=== PATIENT | female | born 1980 | race Two or more races ===

== ENCOUNTER 2023-01-13 10:53 | Emergency (ER) | payer SELFPAY ==
[2023-01-13] MEDS ORDERED: HYDROmorphone 1 MG/ML Syringe IM ONE (11:39)
[2023-01-13] MEDS ORDERED: Cyclobenzaprine 10 MG Tab PO ONE (11:39)
== END 2023-01-13 12:08 | disposition home or self-care (01) ==
LOC: JP.ED 10:53
DX: S46.811A Strain of other muscles, fascia and tendons at shoulder and upper arm level, right arm, initial encounter (principal); S29.012A Strain of muscle and tendon of back wall of thorax, initial encounter; X50.1XXA Overexertion from prolonged static or awkward postures, initial encounter
CPT/HCPCS: 96372; 99283; A9270; J1170

== ENCOUNTER 2023-04-24 10:37 | Emergency (ER) | payer SELFPAY ==
[2023-04-24] MEDS ORDERED: Sodium Chloride 0.9% 10 ML Syringe FLUSH PRN (13:13)
[2023-04-24] MEDS ORDERED: Ketorolac 15 MG/ML SDV IVPUSH ONE (13:15)
[2023-04-24] MEDS ORDERED: Ondansetron 4 MG/2 ML SDV IVPUSH ONE (13:15)
[2023-04-24] MEDS ORDERED: Sodium Chloride 0.9% 1,000 ML IV ONE (13:16)
[2023-04-24 13:26] LABS: BASOPHILS ABSOLUTE AUTO 0.04 K/uL (0.00-0.10); BASOPHILS PERCENT AUTO 0.6 % (0.1-1.3); EOSINOPHILS ABSOLUTE AUTO 0.14 K/uL (0.00-0.40); HEMATOCRIT 34.4 % (34.3-46.0); HEMOGLOBIN 10.8 g/dL (11.2-15.5); IMMATURE GRAN PERCENT AUTO 0.1 % (0.0-0.7); LYMPHOCYTES ABSOLUTE AUTO 2.39 K/uL (0.8-3.3); LYMPHOCYTES PERCENT AUTO 34.6 % (11.4-47.7); MEAN CORPUSCULAR HEMOGLOBIN 23.5 pg (31.6-35.5); MEAN CORPUSCULAR HGB CONC 31.4 g/dL (31.6-35.5); MEAN CORPUSCULAR VOLUME 74.8 fL (81.4-99.0); MONOCYTES ABSOLUTE AUTO 0.51 K/uL (0.20-0.90); MONOCYTES PERCENT AUTO 7.4 % (3.3-12.6); NEUTROPHILS ABSOLUTE AUTO 3.82 K/uL (1.0-7.6); NEUTROPHILS PERCENT AUTO 55.3 % (40.0-78.1); PLATELET COUNT,PLT 184 K/uL (130-375); WHITE BLOOD CELL COUNT,WBC 6.9 K/uL (3.2-11.0)
[2023-04-24 13:30] LABS: IMMATURE GRAN ABSOLUTE AUTO 0.01 K/uL (0.00-0.23)
[2023-04-24 13:41] LABS: CALCIUM 8.6 mg/dL (8.5-10.1); CREATININE 0.6 mg/dL (0.6-1.0); EST CRCL DRUG DOSING (CG) 102.07 mL/min; POTASSIUM,K 3.3 mmol/L (3.6-5.2)
[2023-04-24 13:42] LABS: ANION GAP 11.3 mmol/L (5.0-14.0)
[2023-04-24] MEDS ORDERED: Potassium Chloride 20 MEQ Tab.ER PO ONE (13:45)
[2023-04-24 14:27] LABS: IRON,FE 37 ug/dL (50-170); PERCENT FE SATURATION 9 % (20-55); TOTAL IRON BINDING CAPACITY 433 ug/dl (250-450)
== END 2023-04-24 15:02 | disposition home or self-care (01) ==
LOC: JP.ED 10:37
DX: D50.9 Iron deficiency anemia, unspecified (principal); Z79.82 Long term (current) use of aspirin
CPT/HCPCS: 36415; 80048; 82728; 83550; 85025; 96361; 96374; 96375; 99284; A9270; J1885; J2405; J7030

== ENCOUNTER 2023-04-29 12:45 | Emergency (ER) | payer SELFPAY ==
[2023-04-29 13:28] LABS: BASOPHILS ABSOLUTE AUTO 0.04 K/uL (0.00-0.10); BASOPHILS PERCENT AUTO 0.5 % (0.1-1.3); EOSINOPHILS ABSOLUTE AUTO 0.18 K/uL (0.00-0.40); EOSINOPHILS PERCENT AUTO 2.2 % (0.0-5.4); HEMATOCRIT 35.3 % (34.3-46.0); IMMATURE GRAN ABSOLUTE AUTO 0.03 K/uL (0.00-0.23); IMMATURE GRAN PERCENT AUTO 0.4 % (0.0-0.7); MEAN CORPUSCULAR HEMOGLOBIN 23.8 pg (31.6-35.5); MEAN CORPUSCULAR HGB CONC 31.2 g/dL (31.6-35.5); MEAN CORPUSCULAR VOLUME 76.4 fL (81.4-99.0); MONOCYTES ABSOLUTE AUTO 0.54 K/uL (0.20-0.90); MONOCYTES PERCENT AUTO 6.7 % (3.3-12.6); NEUTROPHILS ABSOLUTE AUTO 4.77 K/uL (1.0-7.6); NEUTROPHILS PERCENT AUTO 59.2 % (40.0-78.1); PLATELET COUNT,PLT 220 K/uL (130-375); RED BLOOD CELL COUNT 4.62 M/uL (3.77-5.24); WHITE BLOOD CELL COUNT,WBC 8.1 K/uL (3.2-11.0)
[2023-04-29] MEDS ORDERED: amLODIPine 5 MG Tab PO ONE (13:42)
[2023-04-29 13:44] LABS: ANION GAP 12.5 mmol/L (5.0-14.0); CALCIUM 8.9 mg/dL (8.5-10.1); CREATININE 0.7 mg/dL (0.6-1.0); EST CRCL DRUG DOSING (CG) 83.65 mL/min; POTASSIUM,K 3.5 mmol/L (3.6-5.2)
== END 2023-04-29 15:37 | disposition home or self-care (01) ==
LOC: JP.ED 12:45
DX: I13.10 Hypertensive heart and chronic kidney disease without heart failure, with stage 1 through stage 4 chronic kidney disease, or unspecified chronic kidney disease (principal); I50.1 Left ventricular failure, unspecified; N18.9 Chronic kidney disease, unspecified; E66.09 Other obesity due to excess calories; D50.9 Iron deficiency anemia, unspecified; Z79.899 Other long term (current) drug therapy; Z79.82 Long term (current) use of aspirin; Z68.35 Body mass index [BMI] 35.0-35.9, adult
CPT/HCPCS: 36415; 71045; 80048; 84443; 85025; 85379; 93005; 99285; A9270

== ENCOUNTER 2024-05-07 23:33 | Emergency (ER) | payer SELFPAY ==
[2024-05-08] MEDS ORDERED: HYDROmorphone 1 MG/ML Syringe IM ONE (00:17)
[2024-05-08] MEDS: HYDROmorphone 0.5 MG/0.5 ML Syringe IVPUSH ONE (00:35)
[2024-05-08] MEDS: Sodium Chloride 0.9% 1,000 ML IV SCH (00:35)
[2024-05-08 00:40] LABS: BASOPHILS ABSOLUTE AUTO 0.05 K/uL (0.00-0.10); BASOPHILS PERCENT AUTO 0.5 % (0.1-1.3); EOSINOPHILS ABSOLUTE AUTO 0.22 K/uL (0.00-0.40); EOSINOPHILS PERCENT AUTO 2.3 % (0.0-5.4); HEMATOCRIT 29.7 % (34.3-46.0); HEMOGLOBIN 9.8 g/dL (11.2-15.5); IMMATURE GRAN ABSOLUTE AUTO 0.03 K/uL (0.00-0.23); IMMATURE GRAN PERCENT AUTO 0.3 % (0.0-0.7); LYMPHOCYTES ABSOLUTE AUTO 3.03 K/uL (0.8-3.3); LYMPHOCYTES PERCENT AUTO 32.3 % (11.4-47.7); MEAN CORPUSCULAR HEMOGLOBIN 25.3 pg (31.6-35.5); MEAN CORPUSCULAR VOLUME 76.5 fL (81.4-99.0); MONOCYTES ABSOLUTE AUTO 0.84 K/uL (0.20-0.90); NEUTROPHILS ABSOLUTE AUTO 5.21 K/uL (1.0-7.6); NEUTROPHILS PERCENT AUTO 55.6 % (40.0-78.1); PLATELET COUNT,PLT 261 K/uL (130-375); RED BLOOD CELL COUNT 3.88 M/uL (3.77-5.24); WHITE BLOOD CELL COUNT,WBC 9.4 K/uL (3.2-11.0)
[2024-05-08 01:03] LABS: A/G RATIO 0.9 (1.2-2.2); ALANINE AMINOTRANSFERASE,ALT 17 U/L (12-78); ALBUMIN 3.5 g/dL (3.4-5.0); ALKALINE PHOSPHATASE 85 U/L (46-116); ASPARTATE AMNIOTRANSFERASE,AST 16 U/L (15-37); BILIRUBIN TOTAL 0.5 mg/dL (0.2-1.0); BLOOD UREA NITROGEN,BUN 9 mg/dL (7-18); C-REACTIVE PROTEIN 1.58 mg/dL (<0.50); CALCIUM 8.8 mg/dL (8.5-10.1); CARBON DIOXIDE,CO2 26 mmol/L (21-32); CHLORIDE,CL 105 mmol/L (100-108); CREATININE 0.7 mg/dL (0.6-1.0); EST CRCL DRUG DOSING (CG) 94.21 mL/min; ESTIMATED GFR 111 mL/min (>60); GLUCOSE RANDOM 102 mg/dL (74-106); PROTEIN TOTAL,TP 7.3 g/dL (6.4-8.2); SODIUM,NA 142 mmol/L (140-148)
[2024-05-08] MEDS: Iopamidol 612 MG/ML 100 ML Bottle IV STA (01:08)
[2024-05-08] MEDS: Sodium Chloride 0.9% 80 ML IV STA (01:08)
[2024-05-08] MEDS: Potassium Chloride 20 MEQ Tab.ER PO ONE (01:44)
== END 2024-05-08 03:01 | disposition home or self-care (01) ==
LOC: JP.ED 23:33
DX: N88.8 Other specified noninflammatory disorders of cervix uteri (principal); Z79.1 Long term (current) use of non-steroidal anti-inflammatories (NSAID)
CPT/HCPCS: 36415; 74177; 80053; 84145; 85025; 86140; 96361; 96374; 99284; A9270; J1170; J3490; J7030; Q9967

== ENCOUNTER 2024-10-07 22:06 | Emergency (ER) | payer SELFPAY ==
[2024-10-07] MEDS: Sodium Chloride 0.9% 10 ML Syringe FLUSH PRN (23:34)
[2024-10-08] MEDS: fentaNYL 100 MCG/2 ML SDV IVPUSH ONE (00:03)
[2024-10-08] MEDS: Ondansetron 4 MG/2 ML SDV IVPUSH ONE (00:03)
[2024-10-08 00:07] LABS: BASOPHILS ABSOLUTE AUTO 0.04 K/uL (0.00-0.10); BASOPHILS PERCENT AUTO 0.4 % (0.1-1.3); EOSINOPHILS ABSOLUTE AUTO 0.23 K/uL (0.00-0.40); EOSINOPHILS PERCENT AUTO 2.4 % (0.0-5.4); HEMATOCRIT 39.4 % (34.3-46.0); HEMOGLOBIN 13.4 g/dL (11.2-15.5); IMMATURE GRAN PERCENT AUTO 0.2 % (0.0-0.7); LYMPHOCYTES ABSOLUTE AUTO 3.21 K/uL (0.8-3.3); LYMPHOCYTES PERCENT AUTO 32.9 % (11.4-47.7); MEAN CORPUSCULAR HEMOGLOBIN 28.3 pg (31.6-35.5); MEAN CORPUSCULAR VOLUME 83.1 fL (81.4-99.0); MONOCYTES ABSOLUTE AUTO 0.72 K/uL (0.20-0.90); MONOCYTES PERCENT AUTO 7.4 % (3.3-12.6); NEUTROPHILS ABSOLUTE AUTO 5.54 K/uL (1.0-7.6); NEUTROPHILS PERCENT AUTO 56.7 % (40.0-78.1); PLATELET COUNT,PLT 176 K/uL (130-375); RED BLOOD CELL COUNT 4.74 M/uL (3.77-5.24); WHITE BLOOD CELL COUNT,WBC 9.8 K/uL (3.2-11.0)
[2024-10-08 00:08] LABS: IMMATURE GRAN ABSOLUTE AUTO 0.02 K/uL (0.00-0.23)
[2024-10-08 00:25] LABS: A/G RATIO 1.1 (1.2-2.2); ALANINE AMINOTRANSFERASE,ALT 41 U/L (12-78); ALBUMIN 3.8 g/dL (3.4-5.0); ALKALINE PHOSPHATASE 96 U/L (46-116); ASPARTATE AMNIOTRANSFERASE,AST 34 U/L (15-37); BILIRUBIN TOTAL 0.7 mg/dL (0.2-1.0); BLOOD UREA NITROGEN,BUN 12 mg/dL (7-18); CALCIUM 8.9 mg/dL (8.5-10.1); CARBON DIOXIDE,CO2 24 mmol/L (21-32); CHLORIDE,CL 104 mmol/L (100-108); CREATININE 0.7 mg/dL (0.6-1.0); ESTIMATED GFR 111 mL/min (>60); GLUCOSE RANDOM 104 mg/dL (74-106); POTASSIUM,K 3.4 mmol/L (3.6-5.2); PROTEIN TOTAL,TP 7.3 g/dL (6.4-8.2); SODIUM,NA 140 mmol/L (140-148)
[2024-10-08 00:26] LABS: ANION GAP 15.4 mmol/L (5.0-14.0)
[2024-10-08] MEDS: Sodium Chloride 0.9% 10 ML Syringe FLUSH PRN (00:33)
[2024-10-08] MEDS: Iopamidol 612 MG/ML 100 ML Bottle IV PRN (00:33)
[2024-10-08] MEDS: Sodium Chloride 0.9% 80 ML IV SCH (00:34)
[2024-10-08 01:06] LABS: APPEARANCE,URINE SLIGHTLY CLOUDY (CLEAR); BILIRUBIN,URINE NEGATIVE (NEGATIVE); COLOR,URINE YELLOW (YELLOW); GLUCOSE,URINE NEGATIVE (NEGATIVE); KETONES,URINE NEGATIVE (NEGATIVE); LEUKOCYTE ESTERASE,URINE NEGATIVE (NEGATIVE); NITRITE,URINE NEGATIVE (NEGATIVE); OCCULT BLOOD,URINE NEGATIVE (NEGATIVE); PROTEIN,URINE NEGATIVE (NEGATIVE); UROBILINOGEN,URINE 0.2 EU/dL (0.2-1.0)
[2024-10-08 01:19] LABS: EPITHELIAL CELLS,URINE FEW; RBC,URINE 0-5 (0-5); WBC,URINE 0-5 (0-5)
[2024-10-08 01:20] LABS: AMORPHOUS SEDIMENT,URINE MANY; BACTERIA,URINE FEW; MUCUS,URINE NOT SEEN
== END 2024-10-08 02:59 | disposition home or self-care (01) ==
LOC: JP.ED 22:06
DX: K59.04 Chronic idiopathic constipation (principal); I10 Essential (primary) hypertension; Z79.82 Long term (current) use of aspirin; Z79.899 Other long term (current) drug therapy
CPT/HCPCS: 36415; 74177; 80053; 81001; 83605; 83690; 84703; 85025; 96374; 96375; 99284; J2405; J3010; Q9967

== ENCOUNTER 2025-02-12 11:41 | Emergency (ER) | payer SELFPAY ==
[2025-02-12 13:04] LABS: APPEARANCE,URINE CLEAR (CLEAR); BILIRUBIN,URINE NEGATIVE (NEGATIVE); COLOR,URINE YELLOW (YELLOW); GLUCOSE,URINE NEGATIVE (NEGATIVE); KETONES,URINE NEGATIVE (NEGATIVE); LEUKOCYTE ESTERASE,URINE NEGATIVE (NEGATIVE); NITRITE,URINE NEGATIVE (NEGATIVE); OCCULT BLOOD,URINE NEGATIVE (NEGATIVE); PH,URINE 7.5 (5.0-8.0); PROTEIN,URINE 30 mg/dL (NEGATIVE); UROBILINOGEN,URINE 0.2 EU/dL (0.2-1.0)
[2025-02-12 13:14] LABS: AMORPHOUS SEDIMENT,URINE NOT SEEN; BACTERIA,URINE NOT SEEN; EPITHELIAL CELLS,URINE MODERATE; MUCUS,URINE FEW; RBC,URINE 0-5 (0-5); WBC,URINE 0-5 (0-5)
== END 2025-02-12 13:36 | disposition home or self-care (01) ==
LOC: JP.ED 11:41
DX: N76.0 Acute vaginitis (principal); I10 Essential (primary) hypertension; Z79.82 Long term (current) use of aspirin; Z79.899 Other long term (current) drug therapy
CPT/HCPCS: 81001; 87210; 99283

== ENCOUNTER 2025-03-09 12:35 | Emergency (ER) | payer SELFPAY | END 2025-03-09 14:18 | disposition home or self-care (01) | LOC: JP.ED 12:35 | DX: I10 Essential (primary) hypertension (principal); Z79.899 Other long term (current) drug therapy; Z90.710 Acquired absence of both cervix and uterus | CPT/HCPCS: 99283 ==